=== PATIENT | female | born 1945 | race Caucasian/White ===

== ENCOUNTER 2023-03-27 06:24 | Day surgery (SDC) | payer MEDICARE, OTHER ==
[2023-03-27] MEDS ORDERED: FENTANYL CITRATE 100 MCG/2 ML AMPUL ONE (07:00)
[2023-03-27] MEDS ORDERED: LIDOCAINE-MPF 2% 5 ML VIAL ONE (08:43)
[2023-03-27] MEDS ORDERED: PROPOFOL 200 MG/20 ML BOTTLE ONE (08:43)
[2023-03-27] MEDS ORDERED: LIDOCAINE HCL 1% 20 ML VIAL ONE (08:57)
[2023-03-27 09:22] VITALS: TEMP 96.8
== END 2023-03-27 09:22 | disposition home or self-care (01) ==
LOC: DS 06:24
PROVIDERS: ATTEND Surgery
DX: R19.4 Change in bowel habit (principal); D50.9 Iron deficiency anemia, unspecified; K57.30 Diverticulosis of large intestine without perforation or abscess without bleeding; K64.8 Other hemorrhoids; K63.89 Other specified diseases of intestine; D12.2 Benign neoplasm of ascending colon; D12.4 Benign neoplasm of descending colon; I10 Essential (primary) hypertension; E03.9 Hypothyroidism, unspecified; G62.9 Polyneuropathy, unspecified; E66.01 Morbid (severe) obesity due to excess calories; Z79.899 Other long term (current) drug therapy; Z98.890 Other specified postprocedural states; Z68.39 Body mass index [BMI] 39.0-39.9, adult; Z96.653 Presence of artificial knee joint, bilateral; Z90.710 Acquired absence of both cervix and uterus
CPT/HCPCS: 45380; 71045; 93005; J3010; J3490; J7120; A4663